=== PATIENT | female | born 1980 | race Hispanic/Latino ===

== ENCOUNTER 2018-07-31 09:46 | Emergency (ER) | payer OTHER ==
[2018-07-31 09:55] VITALS: BMI 28.7
--- NOTE | 2018-07-31 10:23 | ED PDOC ---
HPI: Chest Pain Time Seen by Provider: 07/31/18 10:08 Chief Complaint (Nursing): Chest Pain Chief Complaint (Provider): Chest Pain History Per: Patient History/Exam Limitations: no limitations Onset/Duration Of Symptoms: Days (x3) Quality: Pressure Additional Complaint(s): 38 years old female with no significant PMHx presents to ER for evaluation of intermittent pressure-like chest pain onset 3 days ago. Patient reports she is on vacation here from [place] came on , 2 days ago but states she had the pain before coming here. She reports allergy to Motrin. Patient denies shortness of breath, calf pain, headache, weakness, numbness, tingling, cough, congestion and runny nose. PMD: None provided Past Medical History Reviewed: Historical Data, Nursing Documentation, Vital Signs Vital Signs: Last Vital Signs Temp 97.8 F 07/31/18 09:53 Pulse 68 07/31/18 09:53 Resp 18 07/31/18 09:53 BP 129/84 07/31/18 09:53 Pulse Ox 97 07/31/18 09:53 Primary Care Provider: FAMILY PROVIDER,NO - Medical History PMH: No Chronic Diseases - Surgical History Surgical History: Appendectomy, Cholecystectomy Other surgeries: Bowel repair surgery - Family History Family History: States: Stroke (Father at the age of 48) - Immunization History Hx Tetanus Toxoid Vaccination: No Hx Influenza Vaccination: No Hx Pneumococcal Vaccination: No - Home Medications Home Medications: Ambulatory Orders Medication Instructions Recorded Ibuprofen [Motrin] 600 mg PO TID 7 Days tab 07/31/18 - Allergies Allergies/Adverse Reactions: Allergies Allergy/AdvReac Type Severity Reaction Status Date / Time ponstan AdvReac ANAPHYLAXIS Uncoded 07/31/18 10:15 Review of Systems ROS Statement: Except As Marked, All Systems Reviewed And Found Negative ENT: Negative for: Nose Congestion Cardiovascular: Positive for: Chest Pain (pressure) Respiratory: Negative for: Cough, Shortness of Breath Musculoskeletal: Negative for: Other (Calf pain) Neurological: Negative for: Weakness, Numbness, Headache, Other (Tingling) Physical Exam - Reviewed Nursing Documentation Reviewed: Yes Vital Signs Reviewed: Yes - Physical Exam Appears: Positive for: No Acute Distress Head Exam: Positive for: ATRAUMATIC, NORMOCEPHALIC Skin: Positive for: Normal Color, Warm, Dry Eye Exam: Positive for: Normal appearance, EOMI, PERRL ENT: Positive for: Normal ENT Inspection Neck: Positive for: Normal, Painless ROM, Supple Cardiovascular/Chest: Positive for: Regular Rate, Rhythm. Negative for: Murmur Respiratory: Positive for: Normal Breath Sounds, Other (Substernal mild upper chest tenderness). Negative for: Wheezing Gastrointestinal/Abdominal: Positive for: Normal Exam, Soft. Negative for: Tenderness Back: Positive for: Normal Inspection. Negative for: L CVA Tenderness, R CVA Tenderness Extremity: Positive for: Normal ROM. Negative for: Pedal Edema, Calf Tenderness (or swelling), Swelling Neurological/Psych: Positive for: Awake, Alert, Oriented (x3) - Laboratory Results Result Diagrams: 07/31/18 11:20 07/31/18 11:20 Interpretation Of Abn Labs: acute - ECG ECG: Positive for: Interpreted By Me, Viewed By Me ECG Rhythm: Positive for: Normal QRS, Normal ST Segment, Sinus Rhythm O2 Sat by Pulse Oximetry: 97 (RA) Pulse Ox Interpretation: Normal - Radiology X-Ray: Interpreted by Me, Viewed By Me X-Ray Interpretation: No Acute Disease - CT Scan/US ct Other Rad Studies (CT/US): Read By Radiologist Other Rad Interpretation: no acute - Progress ED Course And Treament: 1627: Stable. AAOx3. CTA done for dimer elevation. Pain free. Tolerated PO. Fu with pcp. Medical Decision Making Medical Decision Making: Time: 1051 Initial plan: --EKG --CMP --Troponin --CBC --D Dimer --Tylenol 325 mg PO Scribe Attestation: Documented by Ximena Richards acting as a scribe for Michel Wei MD. Provider Scribe Attestation: All medical record entries made by the Scribe were at my direction and personally dictated by me. I have reviewed the chart and agree that the record accurately reflects my personal performance of the history, physical exam, medical decision making, and the department course for this patient. I have also personally directed, reviewed, and agree with the discharge instructions and disposition. Disposition - Clinical Impression Clinical Impression: Chest pain - Patient ED Disposition Is Patient to be Admitted: No Counseled Patient/Family Regarding: Studies Performed, Diagnosis, Need For Followup, Rx Given - Disposition Referrals: [facility] [Outside] - 08/02/18 Disposition: Routine/Home Disposition Time: 11:00 Condition: STABLE Additional Instructions: Return if not better in 3 days. Prescriptions: Ibuprofen [Motrin] 600 mg PO TID 7 Days tab Instructions: Chest Pain
[2018-07-31] MEDS ORDERED: Sodium Chloride 0.9% 1,000 ML IV STA (10:51)
[2018-07-31 11:45] LABS: ALB/GLOB RATIO 1.5 (1.0-2.1); ALBUMIN 4.5 g/dL (3.5-5.0); ALT/SGPT 37 U/L (9-52); AST/SGOT 29 U/L (14-36); BLOOD UREA NITROGEN 8 mg/dl (7-17); CALCIUM 9.5 mg/dL (8.4-10.2); GFR NON-AFRICAN AMERICAN > 60
[2018-07-31 11:52] LABS: BASO # 0.1 K/uL (0.0-0.2); BASO % 0.9 % (0.0-2.0); EOS # 0.1 K/uL (0.0-0.7); EOS % 1.9 % (0.0-4.0); HEMOGLOBIN 12.8 g/dL (12.0-16.0); LYMPH # 1.1 K/uL (1.0-4.3); MEAN CELL VOLUME 89.9 fl (81.0-99.0); MEAN CORPUSCULAR HEMOGLOBIN 30.1 pg (27.0-31.0); MEAN CORPUSCULAR HGB CONC 33.5 g/dL (33.0-37.0); MEAN PLATELET VOLUME 7.9 fl (7.2-11.7); MONO # 0.4 K/uL (0.0-0.8); MONO % 5.8 % (0.0-10.0); NEUT # 5.7 K/uL (1.8-7.0); NEUT % 76.4 % (50.0-75.0); NRBC % 0.1 % (0.0-0.0); RBC 4.24 Mil/uL (3.80-5.20); RED CELL DISTRIBUTION WIDTH 13.1 % (11.5-14.5); WHITE BLOOD COUNT 7.5 K/uL (4.8-10.8)
[2018-07-31] MEDS ORDERED: Iohexol 300 100 ML IJ ONE (14:24)
[2018-07-31] MEDS ORDERED: Sodium Chloride 0.9% 100 ML ONE (14:24)
[2018-07-31] MEDS ORDERED: Sodium Chloride 0.9% 50 ML IV ONE (15:00)
[2018-07-31] MEDS ORDERED: Iodixanol 320 MG/ML 100 ML BOTTLE IV ONE (15:00)
--- NOTE | 2018-07-31 15:51 | CT ---
Date of service: 07/31/2018 PROCEDURE: CT Chest with contrast (Pulmonary Angiogram) HISTORY: chest pain COMPARISON: Portable radiograph performed earlier the same. TECHNIQUE: Axial computed tomography images were obtained of the chest in the pulmonary arterial phase of enhancement. Coronal and sagittal reformatted images were created and reviewed. Intravenous contrast dose: Radiation dose: Total exam DLP = 292.55 mGy-cm. This CT exam was performed using one or more of the following dose reduction techniques: Automated exposure control, adjustment of the mA and/or kV according to patient size, and/or use of iterative reconstruction technique. FINDINGS: PULMONARY ARTERIES: There are no filling defects in the pulmonary arteries to suggest acute pulmonary embolism. AORTA: No acute findings. No thoracic aortic aneurysm. No aortic atherosclerotic calcification or mural plaque present. LUNGS: The lungs are well inflated and clear. There is an azygous lobe fissure, an anatomic variant. No nodule, mass or pulmonary consolidation. PLEURAL SPACES: No effusion or pneumothorax. HEART: No cardiomegaly. No significant pericardial effusion. LYMPH NODES: No pathologic mediastinal or hilar lymphadenopathy. BONES, CHEST WALL: Within normal limits for the patient's age. No fracture or destructive lesion OTHER FINDINGS: None. IMPRESSION: No CTA evidence for acute pulmonary embolism. Clear lungs.
[2018-07-31 15:53] VITALS: RESP 16; O2SAT 97
[2018-07-31 16:58] VITALS: BP 132/76; PULSE 66; TEMP 98.1
--- NOTE | 2018-07-31 18:09 | RAD ---
Date of service: 07/31/2018 HISTORY: dyspnea COMPARISON: No prior. TECHNIQUE: 1 view obtained. FINDINGS: LUNGS: No active pulmonary disease. PLEURA: No significant pleural effusion identified, no pneumothorax apparent. CARDIOVASCULAR: No aortic atherosclerotic calcification present. Normal cardiac size. No pulmonary vascular congestion. OSSEOUS STRUCTURES: No significant abnormalities. VISUALIZED UPPER ABDOMEN: Normal. OTHER FINDINGS: None. IMPRESSION: No acute cardiopulmonary disease appreciated.
--- NOTE | 2018-08-01 23:00 | CARD ---
APPROVED REPORT Date of service: 07/31/2018 EKG Measurement Heart [id number] VA 126P3 [id number] <Conclusion> Normal sinus rhythm Normal ECG
== END 2018-07-31 16:55 | disposition home or self-care (01) ==
LOC: H.ER 09:46
DX: R07.89 Other chest pain (principal)
CPT/HCPCS: 71045; 71275; 80053; 81025; 84484; 85025; 85378; 93005; 96360; 99284; J7030; Q9967